=== PATIENT | male | born 1980 | race African-American/Black ===

== ENCOUNTER 2018-04-06 22:57 | Emergency (ER) | payer SELFPAY ==
[~2018-04-06] VITALS: Ht 180.3 cm; Wt 90.7 kg
[2018-04-06 23:01] VITALS: BP_SYST 134
[2018-04-07 04:50] VITALS: BP_SYST 116
== END 2018-04-07 04:50 | disposition home or self-care (01) ==
LOC: SED 22:57
DX: G89.29 Other chronic pain (principal); M54.9 Dorsalgia, unspecified; F10.10 Alcohol abuse, uncomplicated; R03.0 Elevated blood-pressure reading, without diagnosis of hypertension; F90.9 Attention-deficit hyperactivity disorder, unspecified type; Z90.89 Acquired absence of other organs; Z88.6 Allergy status to analgesic agent
CPT/HCPCS: 99283

== ENCOUNTER 2018-04-18 05:41 | Emergency (ER) | payer MEDICAID ==
[~2018-04-18] VITALS: Ht 180.3 cm; Wt 86.2 kg
[2018-04-18 05:41] VITALS: BP_SYST 129
[2018-04-18] MEDS ORDERED: NACL 0.9% 1,000 ML IV ONE (06:13)
[2018-04-18] MEDS ORDERED: ONDANSETRON HCL 4 MG/2 ML VIAL IVP ONE ×3 (06:15→13:30)
[2018-04-18] MEDS ORDERED: MORPHINE 4 MG/ML INJ. SYRINGE IM ONE (06:15)
[2018-04-18] MEDS ORDERED: LORazepam 2 MG/ML VIAL (FOR ER USE) IVP ONE (06:15)
[2018-04-18 06:30] LABS: BASOPHILS % (AUTO) 0.6 % (0.0-2.0); EOSINOPHILS # (AUTO) 0.1 K/uL (0.0-0.4); EOSINOPHILS % (AUTO) 1.6 % (0.0-4.0); HEMATOCRIT 40.2 % (36-54); HEMOGLOBIN 13.5 g/dL (14.0-18.0); LYMPHOCYTES % (AUTO) 24.7 % (20.5-51.5); MEAN CORPUSCULAR HEMOGLOBIN 33 pg (27-31); MEAN CORPUSCULAR HGB CONC 34 % (32-36); MEAN CORPUSCULAR VOLUME 99 fL (79.0-98.0); MONOCYTES # (AUTO) 0.3 K/uL (0.0-1.0); NEUTROPHILS # (AUTO) 2.8 K/uL (1.8-7.7); NEUTROPHILS % (AUTO) 65.1 % (40.0-70.0); PLATELET COUNT (AUTO) 239 K/uL (130-430); RED BLOOD CELL COUNT(AUTO) 4.05 MIL/uL (4.2-6.2); RED CELL DISTRIBUTION WIDTH 13.1 % (9.0-15.0); WHITE BLOOD COUNT (AUTO) 4.2 K/uL (4.8-10.8)
[2018-04-18 06:33] LABS: CALCIUM 9.3 mg/dL (8.4-11.0); CREATININE 0.85 mg/dL (0.55-1.30); POTASSIUM 3.6 mmol/L (3.5-5.1)
[2018-04-18 06:38] LABS: ALBUMIN 3.8 g/dL (3.4-4.8); TOTAL BILIRUBIN 0.6 mg/dL (0.0-1.0)
[2018-04-18 10:43] LABS: BILIRUBIN,URINE NEGATIVE (NEGATIVE); CLARITY/URINE CLEAR (CLEAR); COLOR,URINE YELLOW (YELLOW); GLUCOSE,URINE NEGATIVE (NEGATIVE); KETONES,URINE NEGATIVE (NEGATIVE); LEUKOCYTE ESTERASE ,URINE NEGATIVE (NEGATIVE); NITRITE, URINE NEGATIVE (NEGATIVE); PH,URINE 6.5 (5.0-8.0); PROTEIN URINE NEGATIVE (NEGATIVE); UROBILINOGEN,URINE 0.2 (0.2-1.0)
[2018-04-18 10:44] LABS: BLOOD, URINE TRACE (NEGATIVE)
[2018-04-18 10:53] LABS: BACTERIA,URINE RARE /HPF (None Seen); MUCUS,URINE 1+ /LPF (None Seen); RBC,URINE 0-3 /HPF (0-3); WBC,URINE 0-3 /HPF (0-3)
[2018-04-18 13:00] VITALS: BP_SYST 140
== END 2018-04-18 14:30 | disposition left against medical advice (07) ==
LOC: SED 05:41
DX: R10.84 Generalized abdominal pain (principal); F17.200 Nicotine dependence, unspecified, uncomplicated; F90.9 Attention-deficit hyperactivity disorder, unspecified type; Z90.89 Acquired absence of other organs
CPT/HCPCS: 36415; 80053; 81000; 82150; 83690; 85025; 85610; 96361; 96374; 96375; 96376; 99284; G0482; J2060; J2270; J2405; J7030